=== PATIENT | male | born 1965 | race Caucasian/White ===

== ENCOUNTER 2019-08-11 22:12 | Emergency (ER) | payer MEDICARE, MEDICAID ==
[~2019-08-11] VITALS: Ht 175.3 cm; Wt 104.3 kg
[2019-08-11 22:12] VITALS: BP 145/98
--- NOTE | 2019-08-11 22:28 | NUR ---
PT AMBULATED TO BED #12
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
--- NOTE | 2019-08-11 22:47 | NUR ---
DR. COLES EVALUATING AT BEDSIDE.
[2019-08-11] MEDS ORDERED: LIDOCAINE OINTMENT 5% 35 GM TUBE TP ONE (22:50)
[2019-08-11] MEDS ORDERED: OLANZapine 5 MG ODT SL ONE (22:50)
[2019-08-11] MEDS ORDERED: LIDOCAINE JELLY 2% 30 ML TUBE TP ONE ×2 (23:03→23:05)
[2019-08-11 23:22] VITALS: BP 145/98
--- NOTE | 2019-08-11 23:22 | NUR ---
Patient discharged with v/s stable. Written and verbal after care instructions given and explained. Patient alert, oriented and verbalized understanding of instructions. Ambulatory with steady gait. All questions addressed prior to discharge. ID band removed. Patient advised to follow up with PMD. Rx of Tylenol and Ciprodex given. Patient educated on indication of medication including possible reaction and side effects. Opportunity to ask questions provided and answered.
== END 2019-08-11 23:22 | disposition home or self-care (01) ==
LOC: MED 22:12
DX: H92.03 Otalgia, bilateral (principal); Z87.898 Personal history of other specified conditions
CPT/HCPCS: 99283

== ENCOUNTER 2019-08-19 14:29 | Emergency (ER) | payer MEDICAID, MEDICARE ==
[~2019-08-19] VITALS: Ht 182.9 cm; Wt 103.0 kg
[2019-08-19 14:44] VITALS: BP 127/65
[2019-08-19 16:04] LABS: APPEARANCE,URINE CLEAR (CLEAR); BILIRUBIN,URINE NEGATIVE (NEGATIVE); BLOOD, URINE NEGATIVE (NEGATIVE); COLOR,URINE YELLOW (YELLOW); LEUKOCYTE ESTERASE ,URINE NEGATIVE (NEGATIVE); NITRITE, URINE NEGATIVE (NEGATIVE); UGLUCOSE NEGATIVE (NEGATIVE)
[2019-08-19] MEDS ORDERED: NYSTATIN POW 100 MU/GM 15 GM BTL TP STA (16:35)
[2019-08-19 17:20] VITALS: BP 121/66
== END 2019-08-19 17:20 | disposition home or self-care (01) ==
LOC: MED 14:29
DX: B37.49 Other urogenital candidiasis (principal); F20.9 Schizophrenia, unspecified; Z98.890 Other specified postprocedural states
CPT/HCPCS: 81003; 99283

== ENCOUNTER 2020-05-13 12:54 | Emergency (ER) | payer MEDICARE ==
[~2020-05-13] VITALS: Ht 182.9 cm; Wt 108.9 kg
[2020-05-13 12:58] VITALS: BP 123/70
--- NOTE | 2020-05-13 14:20 | NUR ---
55 YO MALE CO CONSTIPATION FOR YEARS. PT STATES THAT HE HAS NOT HAD A NORMAL BM IN YEARS. PT STATES NO PAIN UNLESS HAVING A BM. PT ALSO STATES THAT FOR ABOUT 8 MONTHS HE HAS HAD TINNITIUS IN BOTH EARS. HX- SCHIZO
[2020-05-13] MEDS ORDERED: MAGNESIUM CITRATE 300 ML BTL PO ONE (15:00)
--- NOTE | 2020-05-13 15:47 | NUR ---
Patiet returned from CT scan/ x-ray.
[2020-05-13 16:46] VITALS: BP 123/70
--- NOTE | 2020-05-13 16:47 | NUR ---
Patient discharged with v/s stable. Written and verbal after care instructions given and explained. Patient alert, oriented and verbalized understanding of instructions. Ambulatory with steady gait. All questions addressed prior to discharge. ID band removed. Patient advised to follow up with PMD. Rx of MILK OF MAGNESIA given. Patient educated on indication of medication including possible reaction and side effects. Opportunity to ask questions provided and answered.
== END 2020-05-13 16:46 | disposition home or self-care (01) ==
LOC: MED 12:54
DX: K59.00 Constipation, unspecified (principal); F20.9 Schizophrenia, unspecified; F17.210 Nicotine dependence, cigarettes, uncomplicated
CPT/HCPCS: 70450; 99284